=== PATIENT | male | born 1960 | race Caucasian/White ===

== ENCOUNTER 2016-10-18 13:07 | Emergency (ER) | payer OTHER ==
[2016-10-18 13:45] VITALS: BP 143/83
--- NOTE | 2016-10-18 15:06 | UC ---
Abdominal Pain Male HPI - HPI Summary HPI Summary: PT WITH HEP C AND RUQ PAIN FOR PAST 2 YEARS. COMPLETED TX FOR HEP C MAY 2016. HAS HAD WORSENING RUQ PAIN FOR PAST 1 MONTH. HAS APPT WITH PCP IN 2 DAYS BUT CAME IN HER DUE TO PAIN. NO FEVER, NAUSEA, DIARRHEA. NO JAUNDICE. REPORTS LABS HAVE ALL BEEN GOOD AT GI FOLLOW-UP. - History of Current Complaint Chief Complaint: UCAbdominalPain Stated Complaint: PAINFUL LUMP ON SIDE Time Seen by Provider: 10/18/16 14:50 Hx Obtained From: Patient Onset/Duration: Gradual Onset, Still Present Timing: Constant Severity Initially: Moderate Severity Currently: Moderate Pain Intensity: 9 - SITTING IN ROOM IN NO DISTRESS Pain Scale Used: 0-10 Numeric Location: Discrete At: RUQ Radiates: No Character: Sharp Aggravating Factor(s):: Nothing Alleviating Factor(s): Nothing Associated Signs And Symptoms: Negative: Diaphoresis, Fever, Cough, Chest Pain, Dizzy, Constipation, Blood in Stool, Urinary Symptoms, Decreased Appetite, Nausea, Vomiting, Diarrhea - Allergies/Home Medications Allergies/Adverse Reactions: Allergies Allergy/AdvReac Type Severity Reaction Status Date / Time Penicillins Allergy Hives/Diff. Verified 10/18/16 13:45 Breathing/I tching Home Medications: Home Medications Esomeprazole Magnesium [Nexium 24Hr] 20 mg PO 10/18/16 [History] PMH/Surg Hx/FS Hx/Imm Hx - Additional Past Medical History Additional PMH: HEP C Endocrine History Of: Denies: Diabetes, Thyroid Disease Cardiovascular History Of: Denies: Cardiac Disorders, Hypertension Respiratory History Of: Denies: COPD, Asthma GI/ History Of: Reports: Ulcer - stomach - Surgical History Surgical History: Yes Surgery Procedure, Year, and Place: titanium plates neck 2005 - Family History Known Family History: Positive: Hypertension, Renal Disease, Other - CVA - father - Social History Alcohol Use: None Alcohol Amount: Stopped drinking 2005 Substance Use Type: None Smoking Status (MU): Heavy Every Day Tobacco Smoker Amount Used/How Often: 1 PPD Review of Systems Constitutional: Negative Respiratory: Negative Cardiovascular: Negative Gastrointestinal: Abdominal Pain Genitourinary: Negative All Other Systems Reviewed And Are Negative: Yes Physical Exam Triage Information Reviewed: Yes Appearance: Well-Appearing, No Pain Distress, Well-Nourished Vital Signs: Initial Vital Signs Temp 97.7 F 10/18/16 13:40 Pulse 78 10/18/16 13:40 Resp 20 10/18/16 13:40 BP 143/83 10/18/16 13:40 Pulse Ox 98 10/18/16 13:40 Vital Signs Reviewed: Yes Eyes: Positive: Conjunctiva Clear ENT: Positive: Hearing grossly normal Neck: Positive: Supple Respiratory Exam: Normal Cardiovascular Exam: Normal Abdomen Description: Positive: Soft, Other: - RUQ TT. NO REBOUND OR RIGIDITY. VOLUNTARY GUARDING. Negative: CVA Tenderness (R), CVA Tenderness (L), Distended , Guarding Bowel Sounds: Positive: Present Musculoskeletal: Positive: No Edema Neurological: Positive: Alert Psychological: Positive: Age Appropriate Behavior Skin: Negative: rashes Abd Pain Male Course/Dx - Course Course Of Treatment: PT NOT NPO SO UNABLE TO PERFORM RUQ US. - Differential Dx/Clinical Impression Provider Diagnoses: RUQ ABDOMINAL PAIN Discharge - Discharge Plan Condition: Stable Disposition: HOME Patient Education Materials: Abdominal Pain (ED) Referrals: Timmy Barahona MD [Primary Care Provider] - (KEEP YOUR APPT IN 2 DAYS) Additional Instructions: YOUR PAIN MAY BE DUE TO GALLBLADDER OR LIVER DISEASE. PLEASE KEEP YOUR APPT WITH YOUR PCP IN 2 DAYS. YOU MAY BENEFIT FROM IMAGING. GO TO THE ER WITHOUT FAIL IF YOU DEVELOP WORSENING PAIN, NAUSEA, FEVER OR ANY OTHER CONCERNING SYMPTOMS.
== END 2016-10-18 15:27 | disposition home or self-care (01) ==
LOC: UCEAST 13:07
DX: R10.11 Right upper quadrant pain (principal); F17.210 Nicotine dependence, cigarettes, uncomplicated; Z88.0 Allergy status to penicillin; Z87.11 Personal history of peptic ulcer disease
CPT/HCPCS: 99211; G0463

== ENCOUNTER 2017-03-15 16:20 | Emergency (ER) | payer OTHER ==
--- NOTE | 2017-03-15 17:49 | UC ---
Shoulder Pain HPI - HPI Summary HPI Summary: WOKE UP THIS AM WITH RIGHT SHOULDER PAIN. NO INJURY. PAIN WITH MOVEMENT. NO SWELLING OR NUMBNESS. NO PREVIOUS SHOULDER INJURY. - History of Current Complaint Chief Complaint: UCUpperExtremity Stated Complaint: SHOULDER PAIN -RIGHT SIDE Time Seen by Provider: 03/15/17 17:33 Hx Obtained From: Patient Onset/Duration: Sudden Onset, Lasting Hours, Still Present Timing: Constant Severity Initially: Moderate Severity Currently: Moderate Location Of Pain: Is Discrete @ - RIGHT ANTERIOR SHOULDER Pain Intensity: 9 Pain Scale Used: 0-10 Numeric Character: Sharp Aggravating Factor(s): Movement Alleviating Factor(s): Rest Associated Signs And Symptoms: Negative: Negative Related History: Dominant Hand Right - Allergies/Home Medications Allergies/Adverse Reactions: Allergies Allergy/AdvReac Type Severity Reaction Status Date / Time Penicillins Allergy Hives/Diff. Verified 03/15/17 16:32 Breathing/I tching Home Medications: Home Medications [facility]* 03/15/17 [History] PMH/Surg Hx/FS Hx/Imm Hx GI/ History: Gastroesophageal Reflux - Surgical History Surgical History: Yes Surgery Procedure, Year, and Place: titanium plates neck 2005 - Family History Known Family History: Positive: Hypertension, Renal Disease, Other - CVA - father - Social History Alcohol Use: None Alcohol Amount: Stopped drinking 2005 Substance Use Type: None Smoking Status (MU): Current Every Day Smoker Amount Used/How Often: 1 1/2 PPD Review of Systems Constitutional: Negative Skin: Negative Respiratory: Negative Cardiovascular: Negative Gastrointestinal: Negative Musculoskeletal: Arthralgia, Decreased ROM All Other Systems Reviewed And Are Negative: Yes Physical Exam Triage Information Reviewed: Yes Appearance: Well-Appearing, No Pain Distress, Well-Nourished Vital Signs: Initial Vital Signs Temp 97.7 F 03/15/17 16:28 Pulse 86 03/15/17 16:28 Resp 16 03/15/17 16:28 BP 138/79 03/15/17 16:28 Pulse Ox 96 03/15/17 16:28 Vital Signs Reviewed: Yes Eyes: Positive: Conjunctiva Clear ENT: Positive: Hearing grossly normal Neck: Positive: Supple Respiratory: Positive: No respiratory distress, No accessory muscle use Cardiovascular: Positive: Pulses Normal Abdomen Description: Positive: Soft Musculoskeletal: Positive: No Edema, ROM Limited @ - RIGHT SHOULDER, Other: - TTP RIGHT ANTERIOR SHOULDER. NEG YERGASON AND SPEEDS. PAIN WITH BOTH PASSIVE AND ACTIVE FLEXION. Neurological: Positive: Alert Psychological: Positive: Age Appropriate Behavior Skin: Negative: rashes Diagnostics - Radiology RIGHT SHOULDER XRAY Xray Interpretation: No Acute Changes - Mild acromioclavicular and glenohumeral joint osteoarthritis. Radiology Interpretation Completed By: Radiologist Shoulder Course/Dx - Differential Dx/Diagnosis Differential Diagnosis/HQI/PQRI: Arthritis, Rotator Cuff Injury, Sprain Provider Diagnoses: RIGHT ADHESIVE CAPSULITIS Discharge - Discharge Plan Condition: Stable Disposition: HOME Prescriptions: Naproxen [Naproxen EC] 500 mg PO BID PRN #30 tab PRN Reason: Pain Patient Education Materials: Adhesive Capsulitis (ED) Referrals: Sandy Humphreys MD [Medical Doctor] - If Needed Timmy Barahona MD [Primary Care Provider] - If Needed Additional Instructions: NO ACUTE CHANGES ON XRAY - MILD OSTEOARTHRITIS. ADHESIVE CAPSULITIS (FROZEN SHOULDER) What is a frozen shoulder? A frozen shoulder is a condition that causes the shoulder to be stiff and unable to move easily. When people have a frozen shoulder, the tissue around the shoulder joint gets thick and tight. This might happen after a persons shoulder gets hurt or if he or she has shoulder surgery. What are the symptoms of a frozen shoulder? People with a frozen shoulder usually have a stiff and painful shoulder and trouble reaching overhead or around to their lower back. Will I need tests? Probably not. Your doctor or nurse will talk with you and do an exam. Often that is all that is needed to diagnose frozen shoulder. But your doctor or nurse might want to do an imaging test, such as an X-ray or MRI scan. Imaging tests create pictures of the inside of the body. How is a frozen shoulder treated? In most cases, a frozen shoulder will get better on its own, but it can take months to heal completely. To help your shoulder get better, you can: -Rest your shoulder Avoiding raising your arm overhead, reaching, and lifting things. -Take a pain-relieving medicine Ask your doctor or nurse about taking an over- the-counter medicine for pain, such as acetaminophen (sample brand name: Tylenol ), ibuprofen (sample brand names: Advil, Motrin), or naproxen (sample brand name : Aleve). -Ask your doctor about exercises that can help At first, the most important thing to do is to rest your shoulder. Later, when the worst of the pain has passed, ask your doctor if its safe to start trying some simple exercises. If he or she says its OK, you can slowly start to do certain exercises. After you are comfortable with simple range of motion exercises, your doctor, nurse, or physical therapist (exercise expert) can suggest some other exercises to make the shoulder muscles stronger. He or she can show you how to do these exercises and tell you when to start them and how often to do them. Any time you do shoulder exercises, make sure to start slowly and make the exercises harder over time. Also, know that some pain is normal, but its important not to push it. If you have sharp or tearing pain, stop what youre doing and let your doctor or nurse know. What if my shoulder doesnt get better? If your symptoms dont get better, talk with your doctor or nurse about other possible treatments, such as: -Getting a shot of medicine or fluid into the shoulder -Surgery FOLLOW-UP WITH ORTHO. REFERRAL TO PT GIVEN TODAY.
[2017-03-15 18:34] VITALS: BP 120/90
--- NOTE | 2017-03-15 18:34 | RAD ---
Indication: RIGHT shoulder pain and decreased range of motion. Comparison: No relevant prior exams available on the [facility] PACS for comparison. Technique: Internal rotation AP, external rotation Grashey, scapular Y, axillary views RIGHT shoulder Report: Normal acromioclavicular and glenohumeral joint alignment.. Mild acromioclavicular and glenohumeral joint osteophytosis. Small inferior acromial bone spur. Only mild glenohumeral joint space narrowing. Mild subchondral sclerosis at the glenoid. Negative for fracture. Negative for stigmata of calcific tendinopathy. Unremarkable soft tissue contours. IMPRESSION: Mild acromioclavicular and glenohumeral joint osteoarthritis.
== END 2017-03-15 18:56 | disposition home or self-care (01) ==
LOC: UCEAST 16:20
DX: M75.01 Adhesive capsulitis of right shoulder (principal); Z72.0 Tobacco use
CPT/HCPCS: 99213; G0463

== ENCOUNTER 2017-04-14 13:37 | Emergency (ER) | payer OTHER ==
--- NOTE | 2017-04-14 13:54 | ED ---
Lower Extremity - HPI Summary HPI Summary: Patient presents to the ED from PCP office with right calf pain x 1 year which has been worsening over the year. He also notes to intermittent SOB and dizzy spells. Denies chest pain. He states the calf pain is achy and rated 5/10 and is intermittent. Denies feelings of warmth or redness. He denies any recent illness or travel. Currently symptoms are manageable and states today is no worse than any other day x 1.5 years, but wanted to get checked out by his PCP who referred him here for an US to r/o DVT. Patient is a smoker. He denies any significant health history ands states he "never goes to the doctor." Denies neck pain, rashes, known tick bites, ART or weakness. Lab work obtained at PCP WNL. - History of Current Complaint Chief Complaint: EDExtremityLower Stated Complaint: RT LEG PAIN Time Seen by Provider: 04/14/17 13:42 Hx Obtained From: Patient Mechanism Of Injury: Unknown Onset/Duration: Still Present Severity Initially: Mild Severity Currently: Mild Pain Intensity: 5 Pain Scale Used: 0-10 Numeric Timing: Intermittent Location: Is Discrete @ - left upper calf Character Of Pain: Aching Associated Signs And Symptoms: Positive: Dizziness Aggravating Factor(s): Standing, Ambulation Alleviating Factor(s): Nothing Able to Bear Weight: Yes - Risk Factors Gout Risk Factors: Male DVT Risk Factors: Negative Septic Arthritis Risk Factor: Negative - Allergies/Home Medications Allergies/Adverse Reactions: Allergies Allergy/AdvReac Type Severity Reaction Status Date / Time Penicillins Allergy Hives/Diff. Verified 03/15/17 16:32 Breathing/I tching PMH/Surg Hx/FS Hx/Imm Hx Previously Healthy: Yes Endocrine/Hematology History: Denies: Hx Diabetes, Hx Thyroid Disease Cardiovascular History: Denies: Hx Hypertension Respiratory History: Denies: Hx Asthma, Hx Chronic Obstructive Pulmonary Disease (COPD) GI History: Reports: Hx Ulcer - stomach - Cancer History Cancer Type, Location and Year: SKIN CA (recurring) - Surgical History Surgery Procedure, Year, and Place: titanium plates neck 2005 - Immunization History Date of Tetanus Vaccine: Unk Date of Influenza Vaccine: None Hx Pertussis Vaccination: No Immunizations Up to Date: Unable to Obtain/Confirm Infectious Disease History: Reports: Hx Hepatitis - hep c (TREATED) Denies: Hx Clostridium Difficile, Hx Human Immunodeficiency Virus (HIV), Traveled Outside the [place] in Last 30 Days - Family History Known Family History: Positive: None, Hypertension, Renal Disease, Other - CVA - father Family History: R & n/C - Social History Occupation: Employed Full-time Lives: With Family Alcohol Use: None Alcohol Amount: Stopped drinking 2005 Hx Substance Use: No Substance Use Type: Reports: None Hx Tobacco Use: Yes Smoking Status (MU): Current Every Day Smoker Amount Used/How Often: 1 /2 PPD Review of Systems Constitutional: Negative Eyes: Negative Cardiovascular: Negative Positive: Shortness Of Breath Gastrointestinal: Negative Positive: Myalgia - right calf pain Skin: Negative Positive: Weakness Psychological: Normal All Other Systems Reviewed And Are Negative: Yes Physical Exam Triage Information Reviewed: Yes Vital Signs On Initial Exam: Initial Vitals Temp Pulse Resp BP Pulse Ox 97.4 F 69 16 139/94 99 04/14/17 13:39 04/14/17 13:39 04/14/17 13:39 04/14/17 13:39 04/14/17 13:39 Vital Signs Reviewed: Yes Appearance: Positive: Well-Appearing, Well-Nourished Skin: Positive: Warm, Skin Color Reflects Adequate Perfusion Head/Face: Positive: Normal Head/Face Inspection Eyes: Positive: EOMI, DEWAYNE, Conjunctiva Clear Neck: Positive: Supple, No Lymphadenopathy Respiratory/Lung Sounds: Positive: Clear to Auscultation, Breath Sounds Present Cardiovascular: Positive: Normal, RRR, Pulses are Symmetrical in both Upper and Lower Extremities Musculoskeletal: Positive: Normal, Strength/ROM Intact, Other - homans sign negative Neurological: Positive: Speech Normal Psychiatric: Positive: Normal AVPU Assessment: Alert - Sarabjit Coma Scale Best Eye Response: 4 - Spontaneous Best Motor Response: 6 - Obeys Commands Best Verbal Response: 5 - Oriented Diagnostics - Vital Signs Vital Signs Temp Pulse Resp BP Pulse Ox 04/14/17 13:39 97.4 F 69 16 139/94 99 - Laboratory Result Diagrams: 04/14/17 14:10 04/14/17 14:10 Lab Statement: Any lab studies that have been ordered have been reviewed, and results considered in the medical decision making process. Lower Extremity Course/Dx - Course Course Of Treatment: Patient sent for US. Negative for DVT. Labs WNL. Xray shows no acute findings. Patient is encouraged to follow up with PCP regarding dizziness and SOB. Patient agrees and is OK for discharge. Discussed possible reasons for leg cramps and encouraged a magnesium supplement at bedtime. To discuss this medication with his doctor. - Diagnoses Differential Diagnosis/HQI/PQRI: Positive: Other - DVT, cough, SOB, dizziness Provider Diagnoses: Right calf pain Discharge - Discharge Plan Condition: Stable Disposition: HOME Patient Education Materials: Leg Cramps (ED) Referrals: Timmy Barahona MD [Primary Care Provider] - Additional Instructions: Take 400mg at bedtime of Magnesium Citrate This is for leg cramps Drink plenty of water as well Please follow up with your PCP this week.
--- NOTE | 2017-04-14 14:12 | RAD ---
HISTORY: Dizziness spells, shortness of breath COMPARISONS: November 30, 2015 VIEWS: 4: Frontal dual-energy and lateral views of the chest. FINDINGS: CARDIOMEDIASTINAL SILHOUETTE: The cardiomediastinal silhouette is normal. ZORAN: The zoran are normal. PLEURA: The costophrenic angles are sharp. No pleural abnormalities are noted. LUNG PARENCHYMA: The lungs are clear. ABDOMEN: The upper abdomen is clear. There is no subphrenic gas. BONES AND SOFT TISSUES: The patient is status post anterior cervical fusion. OTHER: None. IMPRESSION: NO ACTIVE CARDIOPULMONARY DISEASE.
[2017-04-14 14:19] VITALS: BP 140/84
[2017-04-14 14:25] LABS: Hematocrit 50 % (42-52); Hemoglobin 16.6 g/dl (14.0-18.0); Mean Corpuscular HGB Conc 33 g/dl (31-36); Mean Corpuscular Hemoglobin 27 pg (27-31); Mean Corpuscular Volume 82 fL (80-94); Mean Platelet Volume 7 um3 (7.4-10.4); Red Blood Count 6.11 10^6/ul (4.0-5.4); Red Cell Distribution Width 14 % (10.5-15); White Blood Count 8.9 10^3/ul (3.5-10.8)
[2017-04-14 14:37] LABS: Calcium 9.2 mg/dL (8.6-10.3); EGFR African American 109.8 (>60); EGFR Non-African American 85.4 (>60); Globulin 3.1 g/dL (2-4); Total Bilirubin 0.5 mg/dL (0.2-1.0); Total Protein 7.1 g/dL (6.4-8.9)
--- NOTE | 2017-04-14 15:29 | RAD ---
HISTORY: Right calf pain COMPARISONS: None relevant TECHNIQUE: Multiple transverse and longitudinal ultrasound images were obtained of the right lower extremity from the level of the common femoral vein inferiorly through to the infrapopliteal veins using grayscale, color Doppler, and spectral Doppler imaging with and without compression and with augmentation. Comparison images were obtained of the contralateral common femoral vein. FINDINGS: VEINS: There is linear echogenicity within the right femoral vein. The remainder of the venous system of the right lower extremity is compressible throughout its course, with normal flow on color Doppler imaging and normal response to augmentation on spectral Doppler imaging. SOFT TISSUES: Unremarkable. OTHER FINDINGS: None. IMPRESSION: FINDINGS SUGGESTIVE OF REMOTE NONOCCLUSIVE THROMBUS OF THE RIGHT FEMORAL VEIN. NO ACUTE RIGHT LOWER EXTREMITY DEEP VEIN THROMBOSIS
== END 2017-04-14 16:11 | disposition home or self-care (01) ==
LOC: ED 13:37
DX: M79.661 Pain in right lower leg (principal); F17.210 Nicotine dependence, cigarettes, uncomplicated
CPT/HCPCS: 36415; 71020; 80053; 82550; 82553; 83874; 85025; 85730; 99282

== ENCOUNTER 2017-05-28 21:13 | Emergency (ER) | payer OTHER ==
[2017-05-28 21:30] VITALS: BP 146/87
--- NOTE | 2017-05-28 22:05 | UC ---
Skin Complaint HPI - HPI Summary HPI Summary: 56 y/o male presents to the urgent care c/o mole his RT arm pit that is changing in color since yesterday. he noticed it is tuning purple with mild pain 2/10. Pt reports Hx of BCC 25 years ago and 3 years ago in the nose s/p radiation. Pt denies fever, SOB, chest pain, N/V/D, abdominal pain. - History of Current Complaint Chief Complaint: UCSkin Time Seen by Provider: 05/28/17 21:28 Stated Complaint: SPOT NEAR ARM PIT Hx Obtained From: Patient Onset/Duration: Gradual Onset, Lasting Days - 1 day different color of the mole Skin Exposure Onset/Duration: Days Ago - 1 day Timing: Constant Onset Severity: Mild Current Severity: Mild Pain Intensity: 2 Pain Scale Used: 0-10 Numeric Location: Discrete - RT axillary mole Aggravating Factor(s): Touch Alleviating Factor(s): Nothing Associated Signs & Symptoms: Positive: Negative Related History: Other: - Hx of Basal cell carcinoma - Allergy/Home Medications Allergies/Adverse Reactions: Allergies Allergy/AdvReac Type Severity Reaction Status Date / Time Penicillins Allergy Hives/Diff. Verified 03/15/17 16:32 Breathing/I tching Home Medications: Home Medications Ranitidine HCl [Zantac 75] 75 mg PO 05/28/17 [History] Review of Systems Constitutional: Negative Skin: Other - Rt axillary mole changing in color Eyes: Negative ENT: Negative Respiratory: Negative Cardiovascular: Negative Gastrointestinal: Negative Genitourinary: Negative Motor: Negative Neurovascular: Negative Musculoskeletal: Negative Neurological: Negative Psychological: Negative Is Patient Immunocompromised?: No All Other Systems Reviewed And Are Negative: Yes PMH/Surg Hx/FS Hx/Imm Hx Previously Healthy: Yes Endocrine History: Dyslipidemia Other Cancer History: Basal cell carcinoma of the nose 25 years and 3 years ago. - Surgical History Surgical History: Yes Surgery Procedure, Year, and Place: titanium plates neck 2005 - Family History Known Family History: Positive: None, Cardiac Disease, Hypertension, Renal Disease Family History: Skin cancer, CVA - father - Social History Occupation: Employed Full-time Lives: With Family Alcohol Use: None Alcohol Amount: Stopped drinking 2005 Substance Use Type: None Substance Use Comment - Amount & Last Used: occasional Smoking Status (MU): Heavy Every Day Tobacco Smoker Type: Cigarettes Amount Used/How Often: 1 1/2 PPD Have You Smoked in the Last Year: Yes Physical Exam Triage Information Reviewed: Yes Appearance: Well-Appearing, No Pain Distress, Well-Nourished, Obese Vital Signs: Initial Vital Signs Temp 99.3 F 05/28/17 21:25 Pulse 84 05/28/17 21:25 Resp 18 05/28/17 21:25 BP 146/87 05/28/17 21:25 Pulse Ox 99 05/28/17 21:25 Vital Signs Reviewed: Yes Eyes: Positive: Conjunctiva Clear - PERRLA, EOMI, fundi grossly normal ENT: Positive: Normal ENT inspection, Hearing grossly normal, Pharynx normal, TMs normal - B/L external ear canal clear,B/L TM's WNL. Negative: Tonsillar swelling, Tonsillar exudate Neck: Positive: Supple, Nontender, No Lymphadenopathy Respiratory: Positive: Chest non-tender, Lungs clear, Normal breath sounds, No respiratory distress Cardiovascular: Positive: RRR, No Murmur, Pulses Normal, Brisk Capillary Refill Abdomen Description: Positive: Nontender, No Organomegaly, Soft. Negative: CVA Tenderness (R), CVA Tenderness (L) Bowel Sounds: Positive: Present Musculoskeletal: Positive: Strength Intact, ROM Intact, No Edema Neurological Exam: Normal Psychological Exam: Normal Skin: Positive: rashes - Rt axilla with a discrete erythematous indurated papule with a central hair follicle, warm and tender to palpation. no purulent discharge observed. Course/Dx - Course Course Of Treatment: 56 y/o male presents to the urgent care c/o mole his RT arm pit that is changing in color since yesterday. he noticed it is tuning purple with mild pain 2/10. Pt reports Hx of BCC 25 years ago and 3 years ago in the nose s/p radiation. Pt denies fever, SOB, chest pain, N/V/D, abdominal pain.Hx obtained. Pt with Rt axillary folliculitis on examination. Pt Rx Bacitracin ointment and advised if it increases in size with purulent discharge to return to the clinic or f/u with PCP in 3 days. Pt BP elevated today advised to decreases salt in his diet f/u with PCP for further management. PT understood and agreed with plan of care. - Differential Diagnoses - Skin Complaint Differential Diagnoses: Abscess, Cellulitis, Contact Dermatitis, Local Allergic Reaction, Urticaria, Other - mole, skin cancer - Diagnoses Provider Diagnoses: 1- RT axillary folliculitis. 2- elevated BP w/o Hx of HTN Discharge - Discharge Plan Condition: Stable Disposition: HOME Prescriptions: Bacitracin OINTMENT* 1 applic TOPICAL TID #1 tube Patient Education Materials: Folliculitis (ED), Low Sodium Diet (ED) Referrals: Timmy Barahona MD [Primary Care Provider] - 3 Days Additional Instructions: 1-Please apply medication as directed. 2-Take ibuprofen PO OTC q6-8hrs after meals if pain increases. 3-If symptoms do not improve or worsen please f/u with your PCP or return to the urgent care for further evaluation and treatment. 4- Your BP is elevated today, decrease salt in your diet and monitor BP at home , if it continues to be elevated f/u with PCP for further management
== END 2017-05-28 22:26 | disposition home or self-care (01) ==
LOC: UCEAST 21:13
DX: L73.9 Follicular disorder, unspecified (principal); Z88.0 Allergy status to penicillin
CPT/HCPCS: 99211; G0463

== ENCOUNTER 2017-08-02 13:38 | Emergency (ER) | payer OTHER ==
[2017-08-02 14:06] VITALS: BP 119/70
--- NOTE | 2017-08-02 14:12 | UC ---
Skin Complaint HPI - HPI Summary HPI Summary: 57 y/o male presents to the urgent care c/o red painful bump near the Rt axilla for the past 3 days. Pain is 8/10 with touch and 4/10 with rest. Pt reporst Hx ob abscess, but not MRSA. Pt has not taking anything to alleviate symptoms. Pt is PC allergic. Pt denies fever, SOB, chest pain, red streaks on RT arm. abdominal pain. N/V/D - History of Current Complaint Chief Complaint: UCSkin Time Seen by Provider: 08/02/17 14:11 Stated Complaint: RED SWOLLEN AREA UNDER ARM Hx Obtained From: Patient Onset/Duration: Gradual Onset, Lasting Days - 3 days, Still Present Skin Exposure Onset/Duration: Days Ago - 3 days Timing: Constant Onset Severity: Mild Current Severity: Moderate Pain Intensity: 8 Pain Scale Used: 0-10 Numeric Location: Discrete - left axilla Character: Swelling, Pain, Redness, Raised Aggravating Factor(s): Touch Alleviating Factor(s): Heat Associated Signs & Symptoms: Positive: Tenderness. Negative: Fever, Chills, Drainage, Red Streaks - Allergy/Home Medications Allergies/Adverse Reactions: Allergies Allergy/AdvReac Type Severity Reaction Status Date / Time Penicillins Allergy Hives/Diff. Verified 08/02/17 14:00 Breathing/I tching Home Medications: Home Medications Esomeprazole(NF) [Nexium(NF)] 08/02/17 [History] Review of Systems Constitutional: Negative Skin: Other - left axilla with red painful swollen bump Eyes: Negative ENT: Negative Respiratory: Negative Cardiovascular: Negative Gastrointestinal: Negative Genitourinary: Negative Motor: Negative Neurovascular: Negative Musculoskeletal: Negative Neurological: Negative Psychological: Negative Is Patient Immunocompromised?: No All Other Systems Reviewed And Are Negative: Yes PMH/Surg Hx/FS Hx/Imm Hx Previously Healthy: Yes GI/ History: Gastroesophageal Reflux - Surgical History Surgical History: Yes Surgery Procedure, Year, and Place: titanium plates neck 2005 - Family History Known Family History: Positive: None, Cardiac Disease, Hypertension, Renal Disease, Other - CVA - father Family History: Skin cancer, CVA - father - Social History Alcohol Use: None Alcohol Amount: Stopped drinking 2005 Substance Use Type: None Substance Use Comment - Amount & Last Used: occasional Smoking Status (MU): Heavy Every Day Tobacco Smoker Type: Cigarettes Amount Used/How Often: 1 1/2 PPD Have You Smoked in the Last Year: Yes Physical Exam Triage Information Reviewed: Yes Vital Signs: Initial Vital Signs Temp 98.2 F 08/02/17 14:01 Pulse 93 08/02/17 14:01 Resp 16 08/02/17 14:01 BP 119/70 08/02/17 14:01 Pulse Ox 97 08/02/17 14:01 - Additional Comments Vital Signs Reviewed: Yes General: well developed, well nourished male sitting in the examining table w/o any apparent distress Eye Exam: Normal Eyes: Positive: Conjunctiva Clear - PERRLA, EOMI, fundi grossly normal ENT: Positive: Normal ENT inspection, Hearing grossly normal, Pharynx normal, TMs normal Neck: Positive: Supple, Nontender, No Lymphadenopathy Respiratory: Positive: Chest non-tender, Lungs clear, Normal breath sounds, No respiratory distress Cardiovascular: Positive: RRR, No Murmur, Pulses Normal, Brisk Capillary Refill Abdomen Description: Positive: Nontender, No Organomegaly, Soft. Negative: CVA Tenderness (R), CVA Tenderness (L) Bowel Sounds: Positive: Present Musculoskeletal: Positive: Strength Intact, ROM Intact, No Edema Neurological: Positive: Alert, Muscle Tone Normal Psychological Exam: Normal Skin: Positive: left axilla with with a small erythematous pustule that is indurated and fluctuant, tender to palpation, swollen, and warm to touch about 1.0 x .5cm in size. FROM left arm no red streaks noted. sensation is intact, capillary refill WNL, reflexes WNL and pulses WNL Course/Dx - Course Course Of Treatment: 57 y/o male presents to the urgent care c/o red painful bump near the Left axilla for the past 3 days. Pain is 8/10 with touch and 4/10 with rest. Pt reporst Hx ob abscess, but not MRSA. Pt has not taking anything to alleviate symptoms. Pt is PC allergic. Pt denies fever, SOB, chest pain, red streaks on LF arm. abdominal pain. N/V/D. Hx obtained. Pt with a left axillary abscess on examination.I&D of abscess procedure:The procedure was explained and consent obtained. Ponce protocol performed. The wound was anesthetized with 2mL of Lido 1% with good anesthesia. Sterile drape and prep were done. The fluctuant center was incised with #11 blade scalpel. A moderate amount of caseous bloody material was expressed . wound cultures obtained and sent to lab top r/o MRSA. The wound was probed for loculated areas and irrigated with normal saline. The wound was packed loosely with wick or left open. Bacitracin topical ointment applied and wound covered with sterile dressing. The patient tolerated the procedure well. Pt Rx Bactrim PO and ibuprofen PO for pain. Advised to return to the urgent care for wound check up. Pt advised fever develops and pain increase despite ABX to go immediately to the ER for further management. Pt understood and agreed with D/C instructions. Left the clinic ambulating A&OX3. - Differential Diagnoses - Skin Complaint Differential Diagnoses: Abscess, Cellulitis, Local Allergic Reaction, Lymphadenitis, MRSA - Diagnoses Provider Diagnoses: 1-I&D of Left axilla with abscess Discharge - Discharge Plan Condition: Stable Disposition: HOME Prescriptions: Bacitracin OINTMENT* 1 applic TOPICAL TID #1 tube Sulfamethox/Trimethoprim DS* [Bactrim DS 800/160 TAB*] 1 tab PO BID #20 tab Patient Education Materials: Abscess (ED) Referrals: [facility] [Outside] No Primary Care Phys,NOPCP [Primary Care Provider] - Additional Instructions: 1-Please take full course of antibiotic to avoid resistance. Keep wound clean and dry with a sterile dressing. Apply bacitracin topical as directed 2- F/u wound check up in 2 days with your PCP or at the urgent care for removal of packing 3-. Take Ibuprofen PO q6-8hrs prn for pain or swelling. 4-If you develop fever or redness despite antibiotic please go to the ER immediately or return to the Urgent care. 5- Wound culture sent to lab, if any abnormal result you will receive a call from us.
[2017-08-02] MEDS ORDERED: Lidocaine 2% PF * 5 ML VIAL INJ ONE (14:27)
--- NOTE | 2017-08-03 07:52 | UC ---
Progress - Progress Note Progress Note: 08/03/17: wound culture pending. MRSA PCR negative. On . Oscar Hayes MD
--- NOTE | 2017-08-07 17:41 | ED ---
Progress - Progress Note Progress Note: 08/03/17: wound culture pending. MRSA PCR negative. On . Oscar Hayes MD Course/Dx - Course Course Of Treatment: WOUND CX ANAEROBIC GRAM NEGATIVE BACILL; PORPHYROMONAS GINGIVALIS. PATIENT ON BACTRIM. NURSING TO CALL PATIENT; IF COMPLETELY IMPROVED F/U WITH PMD, NO CHANGE IN TREATMENT. IF NOT COMPLETELY IMPROVED; RX CLINDAMYCIN 300MG PO QID AND F/U PMD OR RETURN TO CLINIC OR ED. - Diagnoses Provider Diagnoses: Infection
== END 2017-08-02 15:10 | disposition home or self-care (01) ==
LOC: UCEAST 13:38
DX: L02.412 Cutaneous abscess of left axilla (principal); K21.9 Gastro-esophageal reflux disease without esophagitis; F17.210 Nicotine dependence, cigarettes, uncomplicated; Z88.0 Allergy status to penicillin
CPT/HCPCS: 10060; 87070; 87076; 87205; 87640; 87641; 99212; G0463

== ENCOUNTER 2017-08-04 10:16 | Emergency (ER) | payer OTHER ==
--- NOTE | 2017-08-04 12:37 | UC ---
HPI Wound/Suture Re-check - HPI Summary HPI Summary: 57 y/o male presents to the urgent care for wound recheck s/p I&D of Left axillary abscess and remove of packing. Pt states he feels better and wound is healing well. Pt denies fever, pain, SOB, chest pain, N/V/D - History Of Current Complaint Chief Complaint: UCSkin Stated Complaint: WOUND RECHECK Time Seen by Provider: 08/04/17 12:30 Hx Obtained From: Patient Onset/Duration: Gradual Onset, Lasting Days - 2 days ago I&D, Resolved - resolving Severity: Mild Pain Intensity: 0 Pain Scale Used: 0-10 Numeric - Allergies/Home Medications Allergies/Adverse Reactions: Allergies Allergy/AdvReac Type Severity Reaction Status Date / Time Penicillins Allergy Hives/Diff. Verified 08/04/17 10:31 Breathing/I tching PMH/Surg Hx/FS Hx/Imm Hx Previously Healthy: Yes - Pt denies PMHX - Surgical History Surgical History: Yes Surgery Procedure, Year, and Place: titanium plates neck 2005 - Family History Known Family History: Positive: None, Cardiac Disease, Hypertension, Renal Disease, Other - CVA - father Family History: Skin cancer, CVA - father - Social History Occupation: Employed Full-time Lives: With Family Alcohol Use: None Alcohol Amount: Stopped drinking 2005 Substance Use Type: None Substance Use Comment - Amount & Last Used: occasional Smoking Status (MU): Heavy Every Day Tobacco Smoker Type: Cigarettes Amount Used/How Often: 1 1/2 PPD Have You Smoked in the Last Year: Yes Review of Systems Constitutional: Negative Skin: Other - wound left axillary s/p I&D of abscess Eyes: Negative ENT: Negative Respiratory: Negative Cardiovascular: Negative Gastrointestinal: Negative Genitourinary: Negative Motor: Negative Neurovascular: Negative Musculoskeletal: Negative Neurological: Negative Psychological: Negative Is Patient Immunocompromised?: No All Other Systems Reviewed And Are Negative: Yes Physical Exam Triage Information Reviewed: Yes Appearance: Well-Appearing, No Pain Distress, Well-Nourished Vital Signs: Initial Vital Signs Temp 98 F 08/04/17 10:31 Pulse 71 08/04/17 10:31 Resp 22 08/04/17 10:31 BP 120/80 08/04/17 10:31 Pulse Ox 100 08/04/17 10:31 Vital Signs Reviewed: Yes Eye Exam: Normal ENT Exam: Normal Neck exam: Normal Respiratory Exam: Normal Cardiovascular Exam: Normal Abdominal Exam: Normal Musculoskeletal Exam: Normal Neurological Exam: Normal Psychological Exam: Normal Skin: Positive: Other - left axillary wound from previous abscess healing well, packing removed, normal granulation observed, no erythema or induration observed , non tender to palpation, no yellowish or purulent drainage observed Course/Dx - Course Course Of Treatment: 57 y/o male presents to the urgent care for wound recheck s /p I&D of Left axillary abscess and remove of packing. Pt states he feels better and wound is healing well. Pt denies fever, pain, SOB, chest pain, N/V/ D. HX obtained. Pt left axillary wound from previous abscess healing well, packing removed, normal granulation observed, no erythema or induration observed , non tender to palpation. Pt tolerated well procedure. Topical bacitracin applied over and wound covered with sterile gauze. Wound culture negative for MRSA and Staph Aureus, final reports still pending . Wound D/C instructions given to PT. Pt understands and agreed with plan of care. - Differential Dx - Laceration/Wound Differential Diagnoses: Abscess, Cellulitis, Suture Removal Provider Diagnoses: 1- Wound check s/p I&D of left axillary abscess Discharge - Discharge Plan Condition: Stable Disposition: HOME Patient Education Materials: Acute Wound Care (ED) Referrals: Timmy Barahona MD [Primary Care Provider] - If Needed Additional Instructions: 1-Please Continue applying Bacitracin oint over the affected yadiel and continue taking Bactrim PO as directed 2-Take ibuprofen PO after meals for pain. Wound cultures still pending with final result 3-If symptoms worsen please f/u with your PCP or return to the urgent care for further evaluation and treatment.
[2017-08-04 12:46] VITALS: BP 130/72
== END 2017-08-04 12:55 | disposition home or self-care (01) ==
LOC: UCEAST 10:16
DX: Z51.89 Encounter for other specified aftercare (principal); L02.412 Cutaneous abscess of left axilla; Z72.0 Tobacco use; F10.11 Alcohol abuse, in remission
CPT/HCPCS: 99212; G0463

== ENCOUNTER 2018-05-25 17:36 | Emergency (ER) | payer OTHER ==
[2018-05-25 17:45] VITALS: BP 130/96
--- NOTE | 2018-05-25 18:15 | UC ---
Throat Pain/Nasal Morris HPI - HPI Summary HPI Summary: Patient presents to urgent care with 2 complaints. One, patient states for 24 hours he's had runny nose postnasal drip and intermittent cough. Patient is a cough is worse when he lies flat. Patient states he coughs up clear to white phlegm. No fevers no chills. No shortness of breath. No chest pain. No abdominal pain. No nausea vomiting. Patient states she was remote pupils are sick. Patient does smoke one pack per day. Patient has not taken any over-the- counter medications to treat. Patient states Monday he was outside hunting all day states he's not sure some of this is from his allergies. Patient has some apparent insect bites on his left hip. Patient states there. Patient states that "itches like crazy "patient is not protecting on them. Nobody else at home with a similar wounds. Patient does not have any pets. Patient states he has not seen any insects. Patient's medications reviewed this visit. Patient is not diabetic and has not had medication for blood pressure. - History of Current Complaint Chief Complaint: UCGeneralIllness Stated Complaint: COLD,COUGH & BUG BITES Time Seen by Provider: 05/25/18 18:13 Hx Obtained From: Patient Onset/Duration: Gradual Onset Pain Intensity: 5 - Allergies/Home Medications Allergies/Adverse Reactions: Allergies Allergy/AdvReac Type Severity Reaction Status Date / Time Penicillins Allergy Hives/Diff. Verified 05/25/18 17:46 Breathing/I tching Home Medications: Home Medications Phenylephrine/Dm/Acetaminop/GG [Tylenol Cold-Flu Severe Caplet] 1 each PO ONCE PRN 05/25/18 [History Confirmed 05/25/18] PMH/Surg Hx/FS Hx/Imm Hx Previously Healthy: Yes - Surgical History Surgical History: Yes Surgery Procedure, Year, and Place: titanium plates neck 2005 - Family History Known Family History: Positive: None, Cardiac Disease, Hypertension, Renal Disease, Other - CVA - father Family History: Skin cancer, CVA - father - Social History Occupation: Employed Full-time Lives: With Family Alcohol Use: None Alcohol Amount: Stopped drinking 2005 Substance Use Type: None Substance Use Comment - Amount & Last Used: occasional Smoking Status (MU): Heavy Every Day Tobacco Smoker Type: Cigarettes Amount Used/How Often: 1 PPD Have You Smoked in the Last Year: Yes Review of Systems Constitutional: Negative Skin: Other - insect bites ENT: Nasal Discharge, Sinus Congestion Respiratory: Cough All Other Systems Reviewed And Are Negative: Yes Physical Exam - Summary Physical Exam Summary: Vital Signs Reviewed: Yes A+Ox3, no distress, intermittent cough Eyes: Conjunctiva Clear, DEWAYNE. EOM intact and full ENT: Hearing grossly normal TM x 2 clear, turbinates inflammed and boggy, +PND , mmoist, uvula midline, no exudate, no erythema Neck: Positive: Supple Respiratory: Positive: No respiratory distress, No accessory muscle use + speaking full, easy sentences. + BS throughout no w/r Cardiovascular: RRR nl s1, s2 no m/r CBT <2 sec abd soft + BS nt/nd no guarding, no distension Musculoskeletal Exam: RODRIGUEZ x 4 without difficulty Strength Intact, ROM Intact Neurological: Positive: Alert, + sensation throughout Psychological: Positive: Normal Response To Family Skin: Positive: no rash, no ecchymosis, pt has mobile, nontender nodule behind left ear. Pt states has had for awhile and supposed to get it biopsied N change Pt with 8-9 cluster insect bits left lateral iliac crest. No fluctuance or concern for infection no other lesions Triage Information Reviewed: Yes Vital Signs: Initial Vital Signs Temp 97.7 F 05/25/18 17:41 Pulse 92 05/25/18 17:41 Resp 18 05/25/18 17:41 BP 130/96 05/25/18 17:41 Pulse Ox 99 05/25/18 17:41 Throat Pain/Nasal Course/Dx - Course Course Of Treatment: Patient presents to the urgent care with 2 complaints. Patient with nasal congestion and cough for 24 hours. On exam, patient's lungs are clear. Vital signs are stable. Suspect it's sinus congestion postnasal drip. Recommend patient be take Flonase as well as a short course of prednisone. Patient given a prescription for antibiotic will not start until early next week if symptoms persist. Concern that this could symptoms lungs patient is a smoker. Patient comfortable in agreement with plan. Patient recommended to take [id number] Sudafed. Patient does not have a history of hypertension and his blood pressures okay at this visit. Secondly, patient has a cluster visit insect appearing bites on his left hip. They do not appear infected. Patient instructed use cool packs. Prednisone to help with itching. Patient comfortable in agreement with plan. - Differential Dx/Diagnosis Provider Diagnoses: insect bites. URI Discharge - Sign-Out/Discharge Documenting (check all that apply): Patient Departure All imaging exams completed and their final reports reviewed: No Studies - Discharge Plan Condition: Stable Disposition: HOME Prescriptions: Azithromycin TAB* [Zithromax TAB (Z-PAULO) 250 mg #6 tabs] 2 tab PO .TODAY, THEN 1 DAILY #1 paulo Fluticasone NASAL SPRAY 50MCG* [Flonase NASAL SPRAY 50MCG*] 2 spray BOTH NARES DAILY #1 btl predniSONE TAB* [Deltasone 20 MG TAB*] 40 mg PO DAILY #10 tab Patient Education Materials: Insect Bite or Sting (ED), Upper Respiratory Infection (ED), Postnasal Drip (DC) Referrals: Timmy Barahona MD [Primary Care Provider] - Additional Instructions: - stay well hydrated. Drink plenty of non-alcoholic, non-caffinated beverages - work to decrease cigarette smoke - use nasal spray daily as instructed - take prednisone as prescribed - It is recommended you take decongestant (Claritin-D, Mey-D, Zyrtec-D, Sudafed) If your symptoms persist or worsen (coughing up green phlegm, wheezing) okay to start antibiotics as prescribed - contact your doctor to schedule a follow-up appointment next week - These infections are spread by oral secretions. Do not share eating or drinking utensils. Frequent hand washing is important. Clean items that may get your secretions on them such as cell phones, ipads, computer mouse, television remotes. Once you have been on antbiotics for 2 days or you start to feel better, change your pillowcase and your toothbrush - for your bite wounds, okay to apply cool soaks for itching. THe prednisone should also help with the itching - Billing Disposition and Condition Condition: STABLE Disposition: Home
== END 2018-05-25 18:44 | disposition home or self-care (01) ==
LOC: UCEAST 17:36
DX: J06.9 Acute upper respiratory infection, unspecified (principal); S70.262A Insect bite (nonvenomous), left hip, initial encounter; F17.210 Nicotine dependence, cigarettes, uncomplicated; W57.XXXA Bitten or stung by nonvenomous insect and other nonvenomous arthropods, initial encounter; Z88.0 Allergy status to penicillin; Y93.89 Activity, other specified; Y92.9 Unspecified place or not applicable
CPT/HCPCS: 99212; G0463

== ENCOUNTER 2018-07-04 07:31 | Day surgery (SDC) | payer OTHER ==
[~2018-07-04 07:31] MED LIST: Buffered Lidocaine 0.9% SYRIN* 5 ML/SYR SYRINGE INTRADERM ONE; Dexamethasone IV* 4 MG/ML 1 ML (4 MG) IV SLOW PU ONE
[2018-07-04] MEDS ORDERED: Buffered Lidocaine 0.9% SYRIN* 5 ML/SYR SYRINGE ONE (08:45)
[2018-07-04] MEDS ORDERED: Dexamethasone IV* 4 MG/ML 1 ML (4 MG) ONE (08:45)
[2018-07-04] MEDS ORDERED: Lidocain 1% EPI 1:100,000 * 30 ML MDV ONE (10:04)
[2018-07-04] MEDS ORDERED: fentaNYL* 50 MCG/ML 2 ML VIAL (100 MCG VIAL) ONE ×2 (10:07→13:14)
[2018-07-04] MEDS ORDERED: Propofol* 10 MG/ML 20 ML BTL IV PUSH ONE (10:07)
[2018-07-04] MEDS ORDERED: Midazolam* 1 MG/ML 5 ML VIAL (5 MG) ONE (10:07)
[2018-07-04] MEDS ORDERED: Succinylcholine* 20 MG/ML 10 ML VIAL ONE (10:07)
[2018-07-04] MEDS ORDERED: Lidocaine 2% PF * 5 ML VIAL ONE (10:08)
[2018-07-04] MEDS ORDERED: Naloxone* 0.4 MG/ML 1 ML VIAL IV PRN (10:18)
[2018-07-04] MEDS ORDERED: DiMENhydriNATE IV* 50 MG/ML VIAL IV PUSH PRN (10:18)
[2018-07-04] MEDS ORDERED: HYDROcodone/ACETAMIN 5-325 MG* 1 TAB PO PRN (10:18)
[2018-07-04] MEDS ORDERED: oxyCODONE/Acetamin 5/325 MG* TAB PO PRN (10:18)
[2018-07-04] MEDS ORDERED: Remifentanil* 2 MG VIAL ONE (10:36)
[2018-07-04] MEDS ORDERED: EPHEDrine (Pressors)* 50 MG/ML VIAL ONE (10:41)
[2018-07-04] MEDS ORDERED: Phenylephrine INJ* 10 MG/ML 1 ML VIAL (10 MG) ONE (11:07)
[2018-07-04] MEDS ORDERED: Ondansetron INJ* 2 MG/ML VIAL ONE (12:18)
[2018-07-04] MEDS: fentaNYL* 50 MCG/ML 2 ML VIAL (100 MCG VIAL) IV PRN ×2 (13:15→13:20)
[2018-07-04] MEDS ORDERED: HYDROcodone/ACETAMIN 5-325 MG* 1 TAB ONE (13:27)
[2018-07-04 13:50] VITALS: BP 128/83
--- NOTE | 2018-07-05 06:11 | OP ---
DATE OF OPERATION: 07/04/18 - [facility] DATE OF : 62 SURGEON: Jaden Whatley MD MANAGER OF CONSTRUCTION: Andera Simons MD ANESTHESIA: General. 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 OPERATIVE PROCEDURE: Left superficial parotidectomy with facial nerve monitoring. INDICATIONS: This is a 58-year-old male who presented for left upper neck mass. The mass was located in the left parotid tail region. Fine-needle aspiration was consistent with pleomorphic adenoma. The decision was made to proceed with elective excision. ESTIMATED BLOOD LOSS: Less than 30 cc. SPECIMEN: Left superficial parotid. DESCRIPTION OF PROCEDURE: On 07/04/18, the patient was brought to the operating room. General anesthesia was induced and oral endotracheal tube was placed. NIM facial nerve monitor was then applied, tested, and found to be in good working order. The intended incision site was marked. 1% lidocaine with 1 :100,000 epinephrine was infiltrated into the subcutaneous tissue underlying the intended incision site. The left hemiface and upper neck were then prepped with Betadine. The patient was draped in a sterile fashion and the procedure was begun. A 15 blade was used to incise the skin. The incision was begun in the preauricular fold, brought down inferiorly around the lobule posteriorly, and then down into the upper neck. A flap was then elevated with Gorney scissors over the parotid fascia anteriorly, posteriorly, flap was elevated to the sternocleidomastoid muscle. At this point, dissection was undertaken across the wide front beginning superiorly at the level of the external auditory canal, extending inferiorly along the anterior portion of the sternocleidomastoid muscle. Dissection was undertaken slowly utilizing Magdaleno and a bipolar forceps. The tympano-mastoid suture line was used as the main reference for finding and identifying the facial nerve. Facial nerve was identified. The identity was confirmed with nerve stimulator. The nerve was then traced distally to the pes. The location of the tumor was relatively mid inferior within the gland and so the superior branch of the facial nerves did not need to be traced distally but the entire inferior branch did and to its sub -branches. The parotid tail was mobilized off the inferior branches. It was removed in its entirety with several millimeter cuff of normal parotid tissue. Once the specimen was removed, the wound was inspected. It was irrigated and Valsalva was performed. Small potential bleeding sites were cauterized with bipolar and a clip was placed on a small vessel prior to closure of the main trunk of the nerve and both the inferior and superior main divisions were stimulated and found to be in good working order. The wound was then closed in layers. 4-0 Vicryl was used to close dermis. A 4-0 nylon was then used to close skin inferior to the lobule, superior to the lobule, 4-0 fast absorbing gut was used. A Darwin was placed just inferior to the left lobule to allow for egress of saliva and blood over the next 48 hours. This was sutured in place with 3-0 Prolene. Bacitracin ointment was placed on the incision. The patient was then returned to the care of the anesthesiologist, extubated, and delivered to the PACU in stable condition with good normal facial nerve function. [id number] #: [id number] LUZMARIA
== END 2018-07-04 13:54 | disposition home or self-care (01) ==
LOC: OR 07:31
PROVIDERS: ATTEND Otolaryngology
DX: D11.0 Benign neoplasm of parotid gland (principal); Z72.0 Tobacco use
CPT/HCPCS: 88307; 88341; 88342; 88360; J0330; J1100; J2250; J2405; J2704; J3010

== ENCOUNTER 2018-07-10 12:51 | Emergency (ER) | payer OTHER ==
--- OUTSIDE RECORDS SUMMARY | 2018-07-10 12:58 | XMS REPORT | Continuity of Care Document ---
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 Jun FRAGOSO, Timmy Primary Care Physician Unavailable Payers Type Date Identification Numbers Payment Provider Subscriber Policy Number: [id number] [facility] [employer]oi Group Number: [id number] [address] Group Name: [id number] [place] [address] PayID: [id number] Advance Directives Description No Information Available Problems Description No Information Family History Date Family Member(s) Problem(s) Comments General Cancer General Heart Attack Social History Type Date Description Comments Sex Unknown Occupation Not Currently Working Tobacco Use Start: Unknown Current Cigarette Smoker 1 Pack x 40 years Daily Tobacco Use Start: Unknown Never Smoked Cigars Tobacco Use Start: Unknown Never Smoked A Pipe Smokeless Tobacco Never Used Smokeless Tobacco ETOH Use Never consumed alcohol Tobacco Use Start: Unknown Patient is a current smoker, smokes every day Smoking Status Reviewed: 06/07/18 Patient is a current smoker, smokes every day Allergies, Adverse Reactions, Alerts Date Description Reaction Status Severity Comments 05/30/2018 Penicillin Active Medications Medication Date Status Form Strength Qnty SIG Indications Ordering Provider Nexium 24HR / Active Capsules 20mg as Unknown 0000 DR anthony Percocet 07/03/ Hx Tablets 5-325mg 24tabs 1-2 tabs Jaden 2018 - by mouth Shakir Whatley 07/05/ every 4-6 MD 2018 hours as needed for pain Azithromycin / Hx Tablets 250mg Unknown 0000 - 2017 Zyrtec Allergy / Hx Capsules 10mg 1 by mouth Unknown 0000 - every 06/06/ night at 2018 bedtime Immunizations Description No Information Available Vital Signs Date Vital Result Comment 07/06/2018 8:42am Weight 214.00 lb Weight 97.070 kg Height 68 inches 5'8" Height in cm's 172.7 cm BMI (Body Mass Index) 32.5 kg/m2 06/07/2018 2:48pm BP Systolic 151 mmHg BP Diastolic 94 mmHg Heart Rate 68 /min Respiratory Rate 17 /min Weight 214.00 lb Weight 97.070 kg 05/30/2018 10:43am Weight 216.00 lb Weight 97.978 kg Height 69 inches 5'9" Height in cm's 175.3 cm BMI (Body Mass Index) 31.9 kg/m2 Results Test Date Facility Test Result H/L Range Note Laboratory test 07/04/2018 [facility] Surgical SEE RESULT 1 finding c/o Department of [place] [address] [phone] Laboratory test 05/30/2018 [facility] Cytology SEE RESULT 2 finding c/o Department of Laboratories Non-[place]mercial [place] [address] [phone] 1 SEE RESULT BELOW Name: JUICE CHOI : [address]: Jaden Whatley MD Acct: [id number] Unit: [id number] AGE: 58 Location: OR Re07/04/18 SEX: M Status: [place] IZAGUIRRE SPEC: [id number] VERONICA: 07/04/18- SUBM DR: Jaden Whatley MD REQ: [id number] RECD: 07/04/18 STATUS: SOUT _ ORDERED: LEVEL 5 FINAL DIAGNOSIS Parotid gland, left, superficial parotidectomy: -- 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 -- Unremarkable salivary gland tissue -- Margins of resection are clear. Comment: Basal cell adenoma is closely related and morphologically similar to pleomorphic adenoma but demonstrates predominantly basaloid epithelial elements with peripheral palisading with a stromal component being less pronounced. The biologic behavior similar. Basal cell adenomas are known to arise within madhav or intraparotid lymph nodes and is of no known significance. PRE-OPERATIVE DIAGNOSIS Benign neoplasm of parotid gland GROSS DESCRIPTION The specimen is received in formalin labeled, Left Parotid, and consists of a 16 g, 5.1 x 3.3 x 2.1 cm real-solis ovoid shaggy salivary gland with a small amount of adherent yellow fat. There is a 1.5 x 1.5 x 1.3 cm real-white rubbery well-defined nodule, 0.1 cm from the inked margin. The remaining cut surface is yellow smith and lobulated. The specimen is inked, serially sectioned and entry level marketing representative sections are submitted in cassettes A through I to include mass in cassettes E through H. Signed by and Reported on: Mario Mendez MD 1109 END OF REPORT DEPARTMENT OF PATHOLOGY, [address] [place] [address] Mario Mendez M.D. Director JACRI # [id number] 2 SEE RESULT BELOW Name: JUICE CHOI : [address]: Jaden Whatley MD Acct: [id number] Unit: [id number] AGE: 57 Location: LAB Re05/30/18 SEX: M Status: REG REF SPEC: [id number] VERONICA: 05/30/[address] [facility] [address]: Jaden Whatley MD REQ: [id number] RECD: 05/30/18 STATUS: SOUT _ ORDERED: FNA INTERP RPT, FNA BY PALP, CYTO ADEQ-1ST P FINAL DIAGNOSIS Parotid, left, fine needle aspiration by palpation: -- Benign. -- Pleomorphic adenoma. Comment: The procedure was explained to and understood by the patient. Signed consent was obtained and a time out procedure was performed at the bedside to verify patient identity and biopsy site. Fine needle aspiration biopsy was performed times 1 with a 25 gauge needle on 8 mm left tail of parotid/angle of jaw nodule. Adequacy was assessed by fast stain technique. The procedure was tolerated well without complications. A. PAROTID LEFT - LEFT PAROTID FINE NEEDLE ASPIRATION BY PALPATION CLINICAL HISTORY 0.8 cm left tail of parotid/ angle od jaw nodule. IMMEDIATE INTERPRETATION Pass 1, adequate. CONTINUED ON NEXT PAGE DEPARTMENT OF PATHOLOGY, [facility] [employer] [place] [id number] Mario Mendez M.D. Director [facility] # [id number] RUN DATE: 05/31/18 [facility] LAB LIVE PAGE 2 Patient: STEPHJUICE [id number] (Continued) GROSS DESCRIPTION (Continued) GROSS DESCRIPTION Fine needle aspiration by palpation x 1 pass with 1 Alcohol fixed slide(s). Signed by and Reported on: Mario Mendez MD 07/08 1229 END OF REPORT DEPARTMENT OF PATHOLOGY, [facility] [employer] [place], [place] [address] Mario Mendez M.D. Director [facility] # [id number] Procedures Date Code Description Status 07/04/2018 68914 Exc Of Parotid Tumor Or Gland, Lateral Lobe & Preserve Completed Face Nerve 07/04/2018 22724 Exc Of Parotid Tumor Or Gland, Lateral Lobe & Preserve Completed Face Nerve Encounters Type Date Location Provider Dx Diagnosis Office Visit 06/07/2018 [place] Jaden Schliling D11.0 Benign neoplasm 2:45p 08/21/07 MD Chacorta of parotid gland Office Visit 05/30/2018 [place] Jaden Schilling D37.030 Neoplasm of 11:45a 08/21/07 MD Chacorta uncertain behavior of the parotid salivary gland Plan of Treatment No Information Available
--- OUTSIDE RECORDS SUMMARY | 2018-07-10 12:58 | XMS REPORT | Continuity of Care Document ---
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 Timmy Barahona MD Primary Care Physician Unavailable Payers Type Date Identification Numbers Payment Provider Subscriber Policy Number: [id number] [facility] Juice Choi Group Number: [id number] Group Name: [id number] [place] [address] PayID: [id number] Advance Directives Description No Information Available Problems [...] tabs Jaden 2018 - by mouth Shakir Whatley, 07/05/ every 4-6 MD 2018 hours as [...] Test Result H/L Range Note Laboratory test 05/30/2018 [facility] Cytology SEE RESULT 1 finding c/o Department of Laboratories Non-Telephone [place] [address] [phone] 1 SEE RESULT BELOW Name: JUICE CHOI : [address]: Jaden Whatley MD Acct: [id number] Unit: [id number] AGE: 57 Location: LAB Re05/30/18 SEX: M Status: REG REF SPEC: [id number] VERONICA: 05/30/18-1540 [facility] DR: Jaden Whatley MD REQ: [id number] RECD: 05/30/18-1545 STATUS: SOUT _ ORDERED: FNA INTERP RPT, [...] CONTINUED ON NEXT PAGE DEPARTMENT OF PATHOLOGY, [address] [place] [address] Mario Mendez M.D. Director [facility] # [id number] RUN DATE: 05/31/18 [facility] LAB LIVE PAGE 2 Patient: JUICE CHOI Rakel [id number] (Continued) GROSS DESCRIPTION (Continued) GROSS DESCRIPTION Fine needle aspiration by palpation x 1 pass with 1 Alcohol fixed slide(s). Signed by and Reported on: Mario Mendez MD 07/08 1229 END OF REPORT DEPARTMENT OF PATHOLOGY, [address] [place] [address] Mario Mendez M.D. Director [facility] # [id number] Procedures Description No Information Available Encounters Type Date Location Provider Dx Diagnosis Office Visit 06/07/2018 [place],After Jaden Schilling D11.0 Benign neoplasm 2:45p 08/21/07 MD Chacorta of parotid gland Office Visit 05/30/2018 [place] Jaden Schilling D37.030 Neoplasm of 11:45a 08/21/07 MD Chacorta uncertain behavior of the parotid salivary gland Plan of Treatment Future Appointment(s):07/10/2018 9:00 am - Liseth Gimenez PA-C at [place],After - Jaden Whatley, MDD11.0 Benign neoplasm of parotid gland
--- NOTE | 2018-07-10 13:07 | UC ---
Ear Complaint HPI - HPI Summary HPI Summary: 58 yo male presents with left ear pain. He tells me that 1 week ago he had left sided face/neck surgery by Dr. Whatley. During that surgery he thinks some blood got into his ear and dried onto his TM. This has been causing him pain. He called Dr. Whatley's office about this and was advised to use a saline ear drops to resolve the issue. Pt has been using these with no relief. He is here today requesting an ear irrigation. Denies fever or chills or increased pain around incision. - History of Current Complaint Stated Complaint: BLOOD IN EAR/ CLOGGED Time Seen by Provider: 07/10/18 13:07 Hx Obtained From: Patient Onset/Duration: Sudden Onset Severity Initially: Severe Severity Currently: Severe Pain Intensity: 10 Pain Scale Used: 0-10 Numeric - Allergies/Home Medications Allergies/Adverse Reactions: Allergies Allergy/AdvReac Type Severity Reaction Status Date / Time Penicillins Allergy Severe Difficulty Verified 07/10/18 13:15 Breathing/Wheezing chlorine bleach Allergy Severe Hives Uncoded 07/10/18 13:15 Home Medications: Home Medications oxyCODONE/Acetam5/325MG PREPAK [Percocet 5/325 TAB*] 1 tab PO Q6H PRN 07/10/18 [ History Confirmed 07/10/18] PMH/Surg Hx/FS Hx/Imm Hx GI/ History: Gastroesophageal Reflux - Surgical History Surgical History: Yes Surgery Procedure, Year, and Place: Cervical discectomy-titanium plates and screws-donor bone 2005 [facility]. Basal cell skin lesion removal- multiple times - Family History Known Family History: Positive: Cardiac Disease, Hypertension, Renal Disease, Other - CVA - father Family History: Skin cancer, CVA - father - Social History Occupation: Employed Full-time Lives: With Family Alcohol Use: None Alcohol Amount: Stopped drinking 15-16 years ago per pt Substance Use Type: Marijuana Substance Use Comment - Amount & Last Used: occasional Smoking Status (MU): Heavy Every Day Tobacco Smoker Type: Cigarettes Amount Used/How Often: 1 PPD for 10-12 years 2-3 PPD prior-smoked since age 17 Have You Smoked in the Last Year: Yes Household Exposure Type: Cigarettes Review of Systems All Other Systems Reviewed And Are Negative: Yes Constitutional: Positive: Negative Skin: Positive: Negative Eyes: Positive: Negative ENT: Positive: Ear Ache Respiratory: Positive: Negative Cardiovascular: Positive: Negative Gastrointestinal: Positive: Negative Neurovascular: Positive: Negative Neurological: Positive: Negative Psychological: Positive: Negative Physical Exam - Summary Physical Exam Summary: GENERAL: NAD. WDWN. No pain distress. SKIN: Healed incision overlying left cheek/jawline HEENT: Head: AT/NC Eyes: EOM intact. Conjunctiva clear without inflammation or discharge. Ears: Hearing grossly normal. LEFT ear canal: harden dried blood to 5 o'clock aspect of TM. NECK: Supple. Nontender. No lymphadenopathy. CHEST: CTAB. No r/r/w. No accessory muscle use. Breathing comfortably and in no distress. CV: RRR. Without m/r/g. Pulses intact. NEURO: Alert. PSYCH: Age appropriate behavior. Triage Information Reviewed: Yes Vital Signs: Vital Signs: Temp Pulse Resp BP Pulse Ox 98.2 F 74 18 148/91 96 07/10/18 13:30 07/10/18 13:30 07/10/18 13:30 07/10/18 13:30 07/10/18 13:30 Vital Signs Reviewed: Yes Ear Complaint Course/Dx - Course Course Of Treatment: Pt is unsure exactly what the procedure consisted of that he had done last week. I am hesistant to irrigate the ear canal if there is an underlying defecit/incision. Therefore, I called Dr. Whatley's office and spoke with a nurse who informed me that pt had a parotidectomy and that no incision or instrumentation involved the ear canal/TM. The ear was gently irrigated with NS and the dried blood was dislodged. Pt experienced complete resolution of his discomfort. - Differential Dx/Diagnosis Provider Diagnoses: Dried blood removed from left ear Discharge - Sign-Out/Discharge Documenting (check all that apply): Patient Departure All imaging exams completed and their final reports reviewed: No Studies - Discharge Plan Condition: Stable Disposition: HOME Patient Education Materials: Cerumen Impaction (ED) Referrals: Timmy Barahona MD [Primary Care Provider] - Additional Instructions: If you develop a fever, shortness of breath, chest pain, new or worsening symptoms - please call your PCP or go to the ED. Your blood pressure was high at todays visit. Please see your primary provider within 4 weeks for recheck and re-evaluation. - Billing Disposition and Condition Condition: STABLE Disposition: Home
[2018-07-10 13:36] VITALS: BP 148/91
== END 2018-07-10 14:35 | disposition home or self-care (01) ==
LOC: UCEAST 12:51
DX: H92.02 Otalgia, left ear (principal); Z88.0 Allergy status to penicillin; F17.210 Nicotine dependence, cigarettes, uncomplicated
CPT/HCPCS: 99211; G0463